=== PATIENT | male | born 1970 | race Caucasian/White ===

== ENCOUNTER 2017-02-08 05:30 | Day surgery (SDC) | payer BC ==
[~2017-02-08] VITALS: Ht 193 cm; Wt 76.2 kg
[2017-02-08] MEDS ORDERED: ROCURONIUM BROMIDE 10 MG/ML (ZEMURON) IV ONE (07:30)
[2017-02-08] MEDS ORDERED: DEXAMETHASONE SOD PHOSPHATE 4 MG/ML VIAL IVP ONE (07:30)
[2017-02-08] MEDS ORDERED: fentaNYL CITRATE/PF 100 MCG/2 ML AMP IVP ONE (07:30)
[2017-02-08] MEDS ORDERED: BACITRACIN ZINC 15 GM TOPICAL OINTMENT TP ONE (07:30)
[2017-02-08] MEDS ORDERED: fentaNYL CITRATE 250 MCG/5 ML AMP IV ONE (07:30)
[2017-02-08] MEDS ORDERED: OXYMETAZOLINE HCL 0.05% NASAL SPRAY NS ONE (07:30)
[2017-02-08] MEDS ORDERED: MUPIROCIN 2% TOPICAL OINTMENT 22 GM TP ONE (07:30)
[2017-02-08] MEDS ORDERED: ONDANSETRON HCL 4 MG/2 ML VIAL IVP ONE (07:30)
[2017-02-08] MEDS ORDERED: MIDAZOLAM HCL 5 MG/5 ML VIAL IVP ONE (07:30)
[2017-02-08] MEDS ORDERED: LIDOCAINE/EPI 1% 1:100000 20 ML VIAL INJ ONE (07:30)
[2017-02-08] MEDS ORDERED: NS 50 ML BAG IV ONE (07:30)
[2017-02-08] MEDS ORDERED: LR 1,000 ML IV.SOLN IV ONE (07:30)
[2017-02-08] MEDS ORDERED: PROPOFOL 200MG/ 20ML VIAL (DIPRIVAN) IV ONE (07:30)
[2017-02-08] MEDS ORDERED: EPINEPHrine 1 MG/ML AMP IVP ONE (07:30)
[2017-02-08] MEDS ORDERED: NS IRRIG SOLN 1000 ML IR ONE (07:30)
[2017-02-08] MEDS ORDERED: LR 1,000 ML IV SCH (09:24)
[2017-02-08] MEDS ORDERED: HYDROmorphone 2 MG/ML VIAL IVP PRN (09:30)
[2017-02-08] MEDS ORDERED: METOCLOPRAMIDE HCL 10 MG/2 ML VIAL IVP PRN (09:30)
[2017-02-08] MEDS ORDERED: HYDROmorphone 1 MG INJ. 1 MG/ML AMPUL IVP PRN ×2 (09:30)
[2017-02-08 12:01] VITALS: BP_SYST 141
== END 2017-02-08 12:40 | disposition home or self-care (01) ==
LOC: SMU 05:30 → SDS 05:30 → SMU 10:18 → SDS 12:40
PROVIDERS: ATTEND Otolaryngology
DX: J34.2 Deviated nasal septum (principal); J32.9 Chronic sinusitis, unspecified; J34.89 Other specified disorders of nose and nasal sinuses; Z98.890 Other specified postprocedural states; M19.90 Unspecified osteoarthritis, unspecified site; I10 Essential (primary) hypertension; Z87.891 Personal history of nicotine dependence; G62.9 Polyneuropathy, unspecified
CPT/HCPCS: 30140; 30520; 30999; 31276; 31297; 88305; 88311; 93005; C1726; J0171; J1100; J2250; J2405; J2704; J3010 ×2; J7120